=== PATIENT | male | born 1960 | race Two or more races ===

== ENCOUNTER 2021-12-31 02:02 | Emergency (ER) | payer MEDICAID ==
[2021-12-31 03:23] LABS: Urine Bacteria NONE SEEN /hpf (None Seen); Urine Blood Negative /uL (Negative); Urine Specific Gravity 1.012 (1.001-1.035); Urine WBC <1 /hpf (0 - 3)
== END 2021-12-31 03:11 | disposition left against medical advice (07) ==
LOC: ER 02:06
DX: E86.0 Dehydration (principal); Z53.21 Procedure and treatment not carried out due to patient leaving prior to being seen by health care provider
CPT/HCPCS: 81001